=== PATIENT | male | born 1945 | race Hispanic/Latino ===

== ENCOUNTER 2018-09-21 15:10 | Inpatient (IN) | payer MEDICARE ==
[~2018-09-21] VITALS: Ht 172.7 cm; Wt 94.8 kg
[2018-09-21 15:34] LABS: BASOPHILS % (AUTO) 0.7 % (0.0-5.0); EOSINOPHILS % (AUTO) 3.1 % (0.0-8.0); HEMATOCRIT 38.4 % (42-54); MEAN CORPUSCULAR HEMOGLOBIN 32.9 pg (27.0-33.0); MEAN CORPUSCULAR HGB CONC 33.7 g/dL (32.0-36.0); MEAN CORPUSCULAR VOLUME 97.7 fL (79-99); NEUTROPHILS % (AUTO) 55.2 % (40.0-77.0); PLATELET COUNT (AUTO) 194 K/uL (130-400); RED BLOOD CELL COUNT(AUTO) 3.93 MIL/uL (4.50-6.20); RED CELL DISTRIBUTION WIDTH 13.8 % (11.0-15.5); WHITE BLOOD COUNT (AUTO) 8.4 K/uL (4.8-10.8)
[2018-09-21] MEDS ORDERED: IBUPROFEN 100 MG/5 ML SUSP UDCUP ONE (19:10)
[2018-09-21] MEDS ORDERED: ONDANSETRON HCL 4 MG/2 ML VIAL ONE (19:37)
[2018-09-21] MEDS ORDERED: HYDROMORPHONE 1 MG/1 ML AMP ONE (19:38)
[2018-09-21] MEDS ORDERED: ONDANSETRON HCL 4 MG/2 ML VIAL IVP PRN (19:45)
[2018-09-21] MEDS ORDERED: DEXTROSE 50%-WATER 50 ML DISP.SYRIN IV PRN (19:45)
[2018-09-21] MEDS ORDERED: GLUCAGON 1MG KIT 1 MG ML IM PRN (19:45)
[2018-09-21 19:56] LABS: INR 1.06 (0.85-1.15); PARTIAL THROMBOPLASTIN TIME 24.9 SEC (26.3-35.5); PROTHROMBIN TIME 11.1 SEC (9.6-11.6)
[2018-09-21] MEDS: INSULIN R PO SS1/2 SQ SCH (21:00)
[2018-09-21 23:50] VITALS: BP 160/85
[2018-09-22] MEDS: HYDROMORPHONE HCL 0.5 MG/0.5 ML ML IVP PRN ×4 (01:11→21:49)
[2018-09-22 03:20] VITALS: BP 150/78
[2018-09-22 04:48] LABS: HEMATOCRIT 34.8 % (42-54); MEAN CORPUSCULAR HEMOGLOBIN 33.8 pg (27.0-33.0); MEAN CORPUSCULAR VOLUME 96.5 fL (79-99); PLATELET COUNT (AUTO) 138 K/uL (130-400); RED BLOOD CELL COUNT(AUTO) 3.61 MIL/uL (4.50-6.20); RED CELL DISTRIBUTION WIDTH 13.4 % (11.0-15.5); WHITE BLOOD COUNT (AUTO) 9.9 K/uL (4.8-10.8)
[2018-09-22 04:55] LABS: INR 1.05 (0.85-1.15); PARTIAL THROMBOPLASTIN TIME 27.9 SEC (26.3-35.5)
[2018-09-22 05:00] LABS: ALBUMIN 3.6 g/dL (3.5-5.0); BILIRUBIN,TOTAL 0.7 mg/dL (0.2-1.0); CREATININE 6.4 mg/dL (0.5-1.5); PHOSPHORUS 6.6 mg/dL (2.5-4.9); POTASSIUM 5.1 mmol/L (3.5-5.1); TOTAL PROTEIN, SERUM 7.3 g/dL (6.0-8.3)
[2018-09-22] MEDS: INSULIN R PO SS1/2 SQ SCH ×4 (06:09→20:48)
[2018-09-22 08:00] VITALS: BP 150/81
[2018-09-22] MEDS ORDERED: PANTOPRAZOLE SODIUM 40 MG TABLET.DR PO ONE (08:18)
[2018-09-22] MEDS ORDERED: PANTOPRAZOLE 40 MG/VIAL IVP SCH (09:00)
[2018-09-22] MEDS: PANTOPRAZOLE SODIUM 40 MG TABLET.DR PO SCH (09:11)
[2018-09-22] MEDS ORDERED: CHOL200074 PO (09:24)
[2018-09-22] MEDS ORDERED: MIDO5TAB PO (09:24)
[2018-09-22] MEDS ORDERED: ACET-66 PO (09:24)
[2018-09-22] MEDS ORDERED: CICL34.62 TP (09:24)
[2018-09-22] MEDS ORDERED: CALC667C10 PO (09:24)
[2018-09-22] MEDS ORDERED: FOLI0.8T22 PO (09:24)
[2018-09-22] MEDS ORDERED: SENN8.6T32 PO (09:24)
[2018-09-22] MEDS ORDERED: CICL6.6S TP (09:24)
[2018-09-22] MEDS ORDERED: PARO7.5C2 PO (09:24)
[2018-09-22] MEDS ORDERED: ASPI-555 PO (09:24)
[2018-09-22 12:00] VITALS: BP 140/72
--- NOTE | 2018-09-22 15:59 | NUR ---
Paged Dr. Spencer Mir regarding clearance for surgery.
[2018-09-22 16:00] VITALS: BP 139/70
--- NOTE | 2018-09-22 16:09 | NUR ---
Notified Dr. Mir that Dr. Jones saw pt. and requests clearance, would like to do surgery tomorrow at 2:00pm, also home meds listed and need reconciled.
--- NOTE | 2018-09-22 16:39 | NUR ---
INITIAL: Met with to discuss dcp. Pt states that he lives w spouse, prior to admission was independent w ambulation and ADLs. He does not own any DME or receive services. Pt states that his works during the day. Discussed poss options for [place], pt is willing to consider. Informed CM will continue to follow and wait for Md recommendations. Addendum: 09/22/18 at 1644 by VINCENT ZHANG CM Amended: Links added.
--- NOTE | 2018-09-22 18:23 | NUR ---
Left message with Dr. Weir to call regarding consult.
--- NOTE | 2018-09-22 18:41 | NUR ---
KHANG Nguyen with Dr. Weir returned my call, notified her of consult, states she will notify Dr. Weir.
--- NOTE | 2018-09-22 19:17 | NUR ---
Dr. Weir returned call, will come see pt.
--- NOTE | 2018-09-22 20:05 | NUR ---
Dr. Carmella watson
[2018-09-22] MEDS ORDERED: MIDODRINE HCL 5 MG TABLET PO SCH (20:15)
[2018-09-22 21:27] VITALS: BP 165/80
[2018-09-23] VITALS (24 sets, daily range): BP systolic 117–162; BP diastolic 60–89
[2018-09-23 04:42] LABS: HEMATOCRIT 32.2 % (42-54); MEAN CORPUSCULAR HEMOGLOBIN 33.3 pg (27.0-33.0); MEAN CORPUSCULAR HGB CONC 34.1 g/dL (32.0-36.0); MEAN CORPUSCULAR VOLUME 97.7 fL (79-99); PLATELET COUNT (AUTO) 133 K/uL (130-400); RED CELL DISTRIBUTION WIDTH 13.7 % (11.0-15.5); WHITE BLOOD COUNT (AUTO) 7.7 K/uL (4.8-10.8)
[2018-09-23 04:46] LABS: BAND NEUTROPHILS % (MANUAL) 4 % (0-2); BASOPHILS % (MANUAL) 1 % (0-2); EOSINOPHILS % (MANUAL) 4 % (1-6); LYMPHOCYTES % (MANUAL) 18 % (22-44); MAN.DIFF COMMENT-IMPRESSION MANUAL DIFFERENTIAL; MONOCYTES % (MANUAL) 3 % (2-9); PLATELET MORPHOLOGY COMMENT ADEQUATE; SEGMENTED NEUTROPHILS % 70 % (40-70)
[2018-09-23 04:49] LABS: INR 1.03 (0.85-1.15); PARTIAL THROMBOPLASTIN TIME 30.8 SEC (26.3-35.5); PROTHROMBIN TIME 10.8 SEC (9.6-11.6)
[2018-09-23 04:55] LABS: POTASSIUM 4.3 mmol/L (3.5-5.1)
[2018-09-23 05:15] LABS: CREATININE 8.5 mg/dL (0.5-1.5)
[2018-09-23] MEDS: HYDROMORPHONE HCL 0.5 MG/0.5 ML ML IVP PRN (05:34)
[2018-09-23] MEDS: PANTOPRAZOLE SODIUM 40 MG TABLET.DR PO SCH (05:34)
[2018-09-23] MEDS ORDERED: CEFAZOLIN SODIUM 1 GM VIAL IVP PRN (06:00)
[2018-09-23] MEDS: INSULIN R PO SS1/2 SQ SCH ×4 (06:49→20:50)
--- NOTE | 2018-09-23 08:08 | NUR ---
PAGEEstrellita CARDONA PAGEEstrellita CARDONA REGARDING CARDIAC CLEARANCE. AWAITING CALLBACK.
--- NOTE | 2018-09-23 08:53 | NUR ---
DR. CARDONA SPOKE TO REGARDING CONSULT. STATED HE WOULD CALL ME BACK AFTER HE GOT TO HIS OFFICE.
[2018-09-23] MEDS ORDERED: SODIUM CHLORIDE 0.9% 1000ML 1,000 ML IV ONE (12:20)
--- NOTE | 2018-09-23 12:26 | NUR ---
Relaxation applied elequil aromatabs lavender scent Addendum: 09/23/18 at 1229 by THUAN MA RN RN Amended: Links added.
--- NOTE | 2018-09-23 12:30 | NUR ---
PAIN denies pain while at rest states has pain right hip when moving Addendum: 09/23/18 at 1231 by THUAN MA RN RN Amended: Links added.
[2018-09-23] MEDS ORDERED: CEFAZOLIN SODIUM 1 GM VIAL ONE (12:34)
[2018-09-23] MEDS ORDERED: SUCCINYLCHOLINE 200MG/10ML SYR ONE (13:03)
[2018-09-23] MEDS ORDERED: LIDOCAINE PF 2% 5ML ABBOJECT ONE (13:03)
[2018-09-23] MEDS ORDERED: PROPOFOL 10 MG/ML 20ML VIAL IV ONE (13:04)
[2018-09-23] MEDS ORDERED: FENTANYL CITRATE PF 50 MCG/1 ML 2ML VIAL ONE (13:04)
[2018-09-23] MEDS ORDERED: ROCURONIUM 10MG/1ML SYR 10 MG/ML ML ONE (13:04)
[2018-09-23] MEDS ORDERED: ROPIVACAINE 0.5% 5MG/ML 30ML IJ ONE (13:07)
[2018-09-23] MEDS ORDERED: EPHEDRINE SULFATE 50 MG/ML AMPULE ONE (13:26)
[2018-09-23] MEDS ORDERED: NEOSTIGMINE 5MG/5ML SYR IV ONE (14:41)
[2018-09-23] MEDS ORDERED: GLYCOPYRROLATE 1 MG/5 ML SYRINGE ONE (14:41)
[2018-09-23] MEDS ORDERED: MEPERIDINE-PF 25 MG/ML SYG ONE ×2 (15:26→15:40)
[2018-09-23] MEDS ORDERED: METOCLOPRAMIDE 10 MG/2 ML VIAL ONE (15:35)
[2018-09-23] MEDS ORDERED: HYDROCODONE/ACETAMINOPHEN 5/325 MG TAB PO PRN (19:15)
[2018-09-23] MEDS: CEFAZOLIN SODIUM 1 GM VIAL IVP SCH (20:29)
[2018-09-23] MEDS: HYDROMORPHONE 1 MG/1 ML AMP IVP PRN (21:54)
[2018-09-24] MEDS: CEFAZOLIN SODIUM 1 GM VIAL IVP SCH (03:40)
[2018-09-24 04:00] VITALS: BP 139/65
[2018-09-24 04:24] LABS: BASOPHILS % (AUTO) 0.3 % (0.0-5.0); EOSINOPHILS % (AUTO) 0.7 % (0.0-8.0); HEMATOCRIT 26.6 % (42-54); LYMPHOCYTES % (AUTO) 6.8 % (21.0-51.0); MEAN CORPUSCULAR HEMOGLOBIN 34.2 pg (27.0-33.0); MEAN CORPUSCULAR VOLUME 97.7 fL (79-99); MONOCYTES % (AUTO) 7.6 % (3.0-13.0); NEUTROPHILS % (AUTO) 84.6 % (40.0-77.0); PLATELET COUNT (AUTO) 121 K/uL (130-400); RED BLOOD CELL COUNT(AUTO) 2.72 MIL/uL (4.50-6.20); RED CELL DISTRIBUTION WIDTH 13.3 % (11.0-15.5); WHITE BLOOD COUNT (AUTO) 10.1 K/uL (4.8-10.8)
[2018-09-24 04:47] LABS: MAGNESIUM 2.3 mg/dL (1.80-2.40); PHOSPHORUS 7.6 mg/dL (2.5-4.9); POTASSIUM 5.4 mmol/L (3.5-5.1)
[2018-09-24 04:54] LABS: CREATININE 9.7 mg/dL (0.5-1.5)
[2018-09-24] MEDS: INSULIN R PO SS1/2 SQ SCH ×4 (06:06→20:44)
[2018-09-24 07:37] VITALS: BP 120/71
[2018-09-24] MEDS: PANTOPRAZOLE SODIUM 40 MG TABLET.DR PO SCH (09:14)
[2018-09-24] MEDS: APIXABAN 2.5 MG TABLET PO SCH ×2 (09:15→19:37)
[2018-09-24] MEDS ORDERED: SODIUM CHLORIDE 0.9% 1000ML 1,000 ML IV ONE (09:18)
--- NOTE | 2018-09-24 09:21 | NUR ---
HEMODIALYSIS PATIENT STARTING HEMODIALYSIS IN ROOM.
[2018-09-24] MEDS ORDERED: HEPARIN SODIUM 5000UNIT/ML 1ML VIAL IJ PRN ×2 (09:30)
[2018-09-24] MEDS ORDERED: NITROGLYCERIN 0.4 MG SL TAB SL PRN (09:30)
[2018-09-24] MEDS ORDERED: 0.9% SODIUM CHLORIDE 1000 ML IV BAG IV PRN (09:30)
[2018-09-24] MEDS ORDERED: LIDOCAINE HCL-MPF 1% 2ML VIAL IJ PRN (09:30)
[2018-09-24] MEDS ORDERED: SODIUM CHLORIDE 0.9% 1000ML 1,000 ML IV PRN (09:30)
[2018-09-24] MEDS ORDERED: ACETAMINOPHEN 325 MG TAB PO PRN (09:30)
[2018-09-24 11:15] VITALS: BP 90/58
[2018-09-24] MEDS ORDERED: EPOETIN ALFA 10,000 UNIT/ML VIAL SQ SCH (12:45)
[2018-09-24] MEDS ORDERED: ALBUMIN (HUMAN) 25% 100 ML IV PRN (12:45)
--- NOTE | 2018-09-24 15:10 | NUR ---
09:51 PATIENT WAS RECEIVING DIALYSIS.
--- NOTE | 2018-09-24 16:17 | NUR ---
Nutrition Intervention: Nutrition notification as trigger. Pt admitted for presyncope, Right Hip Dx. Pt currently on Renal dialysis diet, 75gmCCD and reports a good PO intake. Pt with no nutritional complains with n/v/d, chewing or swallowing difficulties. LBM 09/21. Alb 3.6. BMI 31.4. Recommendations: Continue current diet therapy. Consult RD as nutrition concerns arise. Addendum: 09/24/18 at [address] Amended: Links added.
[2018-09-24 16:26] VITALS: BP 112/61
[2018-09-24 19:03] VITALS: BP 130/70
[2018-09-24] MEDS: HYDROCODONE/ACETAMINOPHEN 5/325 MG TAB PO PRN (19:38)
[2018-09-24 19:48] LABS: HEMATOCRIT 24.9 % (42-54)
[2018-09-24 20:03] LABS: ALBUMIN 3.1 g/dL (3.5-5.0); CREATININE 6.4 mg/dL (0.5-1.5)
[2018-09-24 20:04] LABS: HEMOGLOBIN A1C 6.5 % (4.0-6.0)
[2018-09-24] MEDS: HYDROMORPHONE 1 MG/1 ML AMP IVP PRN (20:30)
[2018-09-24 21:11] LABS: % IRON SATURATION 8.6 % (30-44)
[2018-09-24 23:18] VITALS: BP 108/51
[2018-09-25] MEDS: HYDROMORPHONE 1 MG/1 ML AMP IVP PRN ×2 (02:07→23:28)
[2018-09-25 03:21] VITALS: BP 116/57
[2018-09-25 04:28] LABS: BASOPHILS % (AUTO) 0.4 % (0.0-5.0); EOSINOPHILS % (AUTO) 4.8 % (0.0-8.0); HEMATOCRIT 24.1 % (42-54); LYMPHOCYTES % (AUTO) 13.7 % (21.0-51.0); MEAN CORPUSCULAR HEMOGLOBIN 33.1 pg (27.0-33.0); MEAN CORPUSCULAR HGB CONC 34.1 g/dL (32.0-36.0); MEAN CORPUSCULAR VOLUME 97.1 fL (79-99); MONOCYTES % (AUTO) 9.6 % (3.0-13.0); NEUTROPHILS % (AUTO) 71.5 % (40.0-77.0); PLATELET COUNT (AUTO) 130 K/uL (130-400); RED BLOOD CELL COUNT(AUTO) 2.49 MIL/uL (4.50-6.20); RED CELL DISTRIBUTION WIDTH 13.5 % (11.0-15.5); WHITE BLOOD COUNT (AUTO) 7.9 K/uL (4.8-10.8)
[2018-09-25 04:38] LABS: CREATININE 7.4 mg/dL (0.5-1.5); PHOSPHORUS 6.5 mg/dL (2.5-4.9); POTASSIUM 4.6 mmol/L (3.5-5.1)
[2018-09-25] MEDS: INSULIN R PO SS1/2 SQ SCH ×4 (06:21→21:24)
[2018-09-25 08:34] VITALS: BP 118/61
[2018-09-25] MEDS: PANTOPRAZOLE SODIUM 40 MG TABLET.DR PO SCH (09:03)
[2018-09-25] MEDS: APIXABAN 2.5 MG TABLET PO SCH ×2 (09:03→21:04)
[2018-09-25] MEDS: HYDROCODONE/ACETAMINOPHEN 5/325 MG TAB PO PRN ×2 (09:07→21:07)
[2018-09-25 11:31] VITALS: BP 101/56
[2018-09-25 15:53] VITALS: BP 112/59
--- NOTE | 2018-09-25 19:09 | NUR ---
REFERRAL TO [facility]; INFO FAXED; WILL FOLLOW IN AM Addendum: 09/26/18 at 1910 by PAUL CAMPBELL RN CM Amended: Links added.
[2018-09-25 20:00] VITALS: BP 111/61
[2018-09-25] MEDS ORDERED: DOCUSATE CALCIUM 240 MG CAP PO SCH (20:00)
[2018-09-25] MEDS: LACTULOSE 20 GM/30 ML UDCUP PO PRN (21:05)
[2018-09-25] MEDS: ONDANSETRON HCL 4 MG/2 ML VIAL IVP PRN (21:39)
[2018-09-26 00:51] VITALS: BP 130/63
[2018-09-26 04:14] VITALS: BP 151/82
[2018-09-26 04:38] LABS: HEMATOCRIT 23.3 % (42-54); MEAN CORPUSCULAR HEMOGLOBIN 33.9 pg (27.0-33.0); MEAN CORPUSCULAR VOLUME 96.9 fL (79-99); PLATELET COUNT (AUTO) 138 K/uL (130-400); RED BLOOD CELL COUNT(AUTO) 2.41 MIL/uL (4.50-6.20); RED CELL DISTRIBUTION WIDTH 13.4 % (11.0-15.5); WHITE BLOOD COUNT (AUTO) 6.2 K/uL (4.8-10.8)
[2018-09-26 04:52] LABS: ALBUMIN 2.8 g/dL (3.5-5.0); BILIRUBIN,TOTAL 0.4 mg/dL (0.2-1.0); PHOSPHORUS 8.1 mg/dL (2.5-4.9); POTASSIUM 4.6 mmol/L (3.5-5.1); TOTAL PROTEIN, SERUM 6.7 g/dL (6.0-8.3)
[2018-09-26 04:56] LABS: CREATININE 9.4 mg/dL (0.5-1.5)
[2018-09-26] MEDS: INSULIN R PO SS1/2 SQ SCH ×4 (06:26→21:00)
[2018-09-26 08:00] VITALS: BP 170/69
[2018-09-26 08:20] LABS: HEPATITIS Bs ANTIGEN SCREEN P Negative (Negative)
[2018-09-26] MEDS: APIXABAN 2.5 MG TABLET PO SCH ×2 (10:53→21:19)
[2018-09-26] MEDS: LACTULOSE 20 GM/30 ML UDCUP PO PRN (10:53)
[2018-09-26] MEDS: PANTOPRAZOLE SODIUM 40 MG TABLET.DR PO SCH (10:53)
[2018-09-26] MEDS: HYDROCODONE/ACETAMINOPHEN 5/325 MG TAB PO PRN (10:56)
[2018-09-26 11:00] VITALS: BP 117/70
--- NOTE | 2018-09-26 11:05 | NUR ---
POST DIALYSIS VITAL SIGNS LISTED: 141/71BP, 87HR, 17RR, 97.6T. NO NOTED SOB OR DISTRESS. REMOVED 1.3 LITERS OF FLUID WITH DIALYSIS. PT IS AAOX3, STATING HE "FEELS FINE". WILL CONTINUE TO MONITOR PT CLOSELY.
--- NOTE | 2018-09-26 12:20 | NUR ---
DRESSINGS CHANGED DRESSINGS TO RIGHT HIP INCISIONS CHANGED ORDERED BY DR. LOPEZ. RED DRAINAGE NOTED TO DRESSING. INCISIONS X3 ARE INTACT. GAUZE APPLIED TO ALL INCISIONS WITH TAPE. PATIENT TOLERATED DRESSING WELL. WILL CONTINUE TO MONITOR CLOSELY.
--- NOTE | 2018-09-26 13:00 | NUR ---
ACCEPTED AT [facility] WAS SEEN BY FAM AT [facility]; ACCEPTED, WRITTEN CONSENT/CHOIC OBTAINED; WILL ANTICIPATE DC TOMORROW; EMS TRANSPORT EXPECTED; MOT INITI ATED FOR DR. BRADSHAW- DECLINED TO GIVE ORDER Addendum: 09/26/18 at 1913 by PAUL CAMPBELL RN CM AMEND- THIS LATE NOTE SHOULD HAVE BEEN TIMED FOR 1500
--- NOTE | 2018-09-26 13:30 | NUR ---
SYMPTOMATIC HYPOTENSION PATIENT TRANSFERRED X2 TO [facility] FOR PENDING BM. PATIENT HAD LARGE BOWL BUT STATED HE WAS STRAINING. NO RED DRAINAGE NOTED ON BM. PATIENT STATED HE FELT REALLY WEAK AND FATIGUED. BLOOD PRESSURE NOTED TO BE 104/55 WITH HEART RATE OF 102. BLOOD SUGAR WITHIN NORMAL LIMITS. DIALYSIS DONE PRIOR, REMOVED 1.3 LITERS. PATIENT TRANSFERRED BACK TO BED X2 ASSIST BY PHYSICAL THERAPY. LEGS ELEVATED IN BED. AAOX3. PAGED, WILL CONTINUE TO MONITOR PT CLOSELY.
--- NOTE | 2018-09-26 14:10 | NUR ---
RECHECK OF BLOOD PRESSURE MD AT BEDSIDE, REPORTED OF SYMPTOMATIC BLOOD PRESSURE. PATIENT IN BED WITH LEGS ELEVATED, AAOX3. BLOOD PRESSURE AT 124/78. NEW ORDERS GIVEN. WILL CONTINUE TO MONITOR PT CLOSELY.
[2018-09-26] MEDS: FOLIC ACID/VITAMIN B COMP W-C 1 MG CAPSULE PO SCH (15:37)
[2018-09-26] MEDS: MIDODRINE HCL 5 MG TABLET PO SCH ×2 (15:37→21:19)
[2018-09-26 16:00] VITALS: BP 126/66
[2018-09-26 20:46] VITALS: BP 129/61
[2018-09-27] VITALS (7 sets, daily range): BP systolic 98–154; BP diastolic 55–66
[2018-09-27 04:45] LABS: HEMATOCRIT 22.6 % (42-54); MEAN CORPUSCULAR HEMOGLOBIN 33.5 pg (27.0-33.0); MEAN CORPUSCULAR HGB CONC 34.7 g/dL (32.0-36.0); MEAN CORPUSCULAR VOLUME 96.4 fL (79-99); PLATELET COUNT (AUTO) 180 K/uL (130-400); RED BLOOD CELL COUNT(AUTO) 2.35 MIL/uL (4.50-6.20); RED CELL DISTRIBUTION WIDTH 13.3 % (11.0-15.5); WHITE BLOOD COUNT (AUTO) 7.8 K/uL (4.8-10.8)
[2018-09-27 04:54] LABS: CREATININE 7.1 mg/dL (0.5-1.5); PHOSPHORUS 6.1 mg/dL (2.5-4.9)
[2018-09-27] MEDS: INSULIN R PO SS1/2 SQ SCH ×4 (06:49→21:00)
[2018-09-27] MEDS: PANTOPRAZOLE SODIUM 40 MG TABLET.DR PO SCH (06:49)
[2018-09-27] MEDS: FOLIC ACID/VITAMIN B COMP W-C 1 MG CAPSULE PO SCH (07:51)
[2018-09-27] MEDS: MIDODRINE HCL 5 MG TABLET PO SCH ×4 (07:51→21:22)
--- NOTE | 2018-09-27 08:16 | NUR ---
Patient incision noted to be actively bleeding in one area at the top of incision. Dr. Jones notified, orders received to apply pressure dressing, continue with Eliquis, and apply ice packs to top of incision. Incisions are with harvey no redness or purulent drainage noted. Top incision cleansed w/ NS, pat dried, stack of 4x4s applied and covered tightly with tape. No drainage noted to lower incisions. H/H 7.9 and 22.6. Physician aware. Will continue to monitor
[2018-09-27] MEDS: APIXABAN 2.5 MG TABLET PO SCH ×2 (09:00→21:22)
[2018-09-27] MEDS ORDERED: FOLIC ACID/VITAMIN B COMP W-C 1 MG CAPSULE PO SCH (09:00)
[2018-09-27] MEDS: HYDROCODONE/ACETAMINOPHEN 5/325 MG TAB PO PRN (09:01)
--- NOTE | 2018-09-27 09:30 | NUR ---
No further bleeding noted to right hip dressing.
[2018-09-27] MEDS: ONDANSETRON HCL 4 MG/2 ML VIAL IVP PRN (13:39)
--- NOTE | 2018-09-27 18:10 | NUR ---
Report called to [facility] INPT rehab nurse Anastasiia. Discharge teaching completed in the room with pt and at side. Emphasis on Dr. Jones's orders for activity, physical therapy, and dressing care, as well as s/s to monitor for, and when to seek emergency care vs dial 911. Pt will be followed by Dr. Mir at [facility] and has a follow up appt with Dr. Jones on 4. @ 11am. Med rec and rx for eliquis, surfak, and tramadol included in discharge packet. Discussed purpose, route, frequency, and duration of medications, as well as side effects and adverse effects. PIV removed, tip intact. Dressed with sterile 2x2 and band aid after hemostasis achieved. Dressing to right hip dry and intact, no further bleeding or drainage noted since this am. Notified EMS of need for transport.
--- NOTE | 2018-09-27 19:00 | NUR ---
Report given to oncoming nurse Patricia Zapien RN. Pt still awaiting pickup from EMS.
--- NOTE | 2018-09-27 23:30 | NUR ---
DISCHARGE DISCHARGE TO [facility] IN PATIENT REHAB VIA EMS , FAMILY MEMBER AT BEDSIDE
== END 2018-09-27 23:34 | DRG 480 ==
LOC: EDH 15:10 → EDHIP 19:10 → 4BH 23:26
PROVIDERS: ADMIT Internal Medicine Nephrology; ATTEND Internal Medicine Nephrology
PROC: 0QS604Z Reposition Right Upper Femur with Internal Fixation Device, Open Approach (ICD-10-PCS; principal; 2018-09-23 13:06)
PROC: 5A1D70Z Performance of Urinary Filtration, Intermittent, Less than 6 Hours Per Day (ICD-10-PCS; 2018-09-24)
PROC: 5A1D70Z Performance of Urinary Filtration, Intermittent, Less than 6 Hours Per Day (ICD-10-PCS; 2018-09-26)
DX: S72.001A Fracture of unspecified part of neck of right femur, initial encounter for closed fracture (principal); N18.6 End stage renal disease; I12.0 Hypertensive chronic kidney disease with stage 5 chronic kidney disease or end stage renal disease; I95.1 Orthostatic hypotension; D64.9 Anemia, unspecified; I25.10 Atherosclerotic heart disease of native coronary artery without angina pectoris; I45.81 Long QT syndrome; Y93.01 Activity, walking, marching and hiking; E11.21 Type 2 diabetes mellitus with diabetic nephropathy; E11.22 Type 2 diabetes mellitus with diabetic chronic kidney disease; E11.40 Type 2 diabetes mellitus with diabetic neuropathy, unspecified; E11.51 Type 2 diabetes mellitus with diabetic peripheral angiopathy without gangrene; E78.5 Hyperlipidemia, unspecified; W18.30XA Fall on same level, unspecified, initial encounter; Z99.2 Dependence on renal dialysis; Y92.89 Other specified places as the place of occurrence of the external cause; Y99.8 Other external cause status; Z86.73 Personal history of transient ischemic attack (TIA), and cerebral infarction without residual deficits; Z79.01 Long term (current) use of anticoagulants
CPT/HCPCS: 36415; 71045; 73502; 73700; 76000; 80048; 80053; 80061; 82040; 82565; 82728; 82948; 83036; 83540; 83550; 83735; 84100; 84520; 85014; 85018; 85025; 85027; 85610; 85730; 86701; 86704; 86706; 87340; 87390; 87520; 90935; 93005; 97039; A4218; C9113; G0378; J0330; J0690; J0885; J1170; J1815; J2001; J2175; J2405; J2704; J2710; J2765; J2795; J3010; J3490; J7030; P9046

== ENCOUNTER → 2022-05-24 | Outpatient (CLI) | payer MEDICARE ==
[~2022-05-24] MED LIST: ACET-66 PO; ASPI-556 PO; CALC667C10 PO; CHOL200074 PO; CICL34.62 TP; CICL6.6S TP; FOLI0.8T22 PO; MIDO5TAB4 PO; PARO7.5C2 PO; SENN8.6T32 PO
== END | disposition home or self-care (01) ==
LOC: RAH 13:30
PROVIDERS: ATTEND Internal Medicine
DX: E04.2 Nontoxic multinodular goiter (principal); E05.90 Thyrotoxicosis, unspecified without thyrotoxic crisis or storm
CPT/HCPCS: 76536